=== PATIENT | male | born 1995 | race Caucasian/White ===

== ENCOUNTER 2017-03-10 19:23 | Emergency (ER) | payer OTHER, BC ==
[~2017-03-10] VITALS: Ht 182.9 cm; Wt 55.7 kg
[2017-03-10] MEDS ORDERED: MOTRIN600 MG PO (21:32)
[2017-03-10] MEDS ORDERED: FLEXERIL10 MG PO (21:32)
[2017-03-10 21:51] VITALS: BP 141/80
== END 2017-03-10 21:45 | disposition home or self-care (01) ==
LOC: EME 19:23
DX: S16.1XXA Strain of muscle, fascia and tendon at neck level, initial encounter (principal); V49.40XA Driver injured in collision with unspecified motor vehicles in traffic accident, initial encounter; Y92.410 Unspecified street and highway as the place of occurrence of the external cause
CPT/HCPCS: 72125; 99281; 99284